=== PATIENT | female | born 1965 | race Caucasian/White ===

== ENCOUNTER → 2019-12-25 | Outpatient (CLI) | payer OTHER ==
[~2019-12-25] MED LIST: CYCLOBENZAPRINE5 MG PO; FLONASE 0.05%50 MCG NASAL; IBUPROFEN 400400 M1 PO; IBUPROFEN 800800 M1 PO
== END ==
LOC: CAT 12:53
DX: Z13.6 Encounter for screening for cardiovascular disorders (principal); I25.10 Atherosclerotic heart disease of native coronary artery without angina pectoris; E78.00 Pure hypercholesterolemia, unspecified

== ENCOUNTER → 2020-01-05 | Outpatient (CLI) | payer BC | LOC: SJCVCIMAG 13:22 | PROVIDERS: ATTEND Internal Medicine Cardiovascular Disease | DX: Z01.818 Encounter for other preprocedural examination (principal); R06.09 Other forms of dyspnea; Q23.1 Congenital insufficiency of aortic valve; I10 Essential (primary) hypertension; F17.210 Nicotine dependence, cigarettes, uncomplicated ==

== ENCOUNTER → 2020-08-12 | Outpatient (CLI) | payer BC | LOC: SJCVCIMAG 09:27 | PROVIDERS: ATTEND Internal Medicine Cardiovascular Disease | DX: I35.1 Nonrheumatic aortic (valve) insufficiency (principal); I11.9 Hypertensive heart disease without heart failure; I48.0 Paroxysmal atrial fibrillation ==